=== PATIENT | male | born 1980 | race Two or more races ===

== ENCOUNTER 2018-11-06 10:46 | Emergency (ER) | payer SELFPAY ==
[~2018-11-06] VITALS: Ht 177.8 cm; Wt 86.2 kg
[2018-11-06 11:00] VITALS: BP 114/72
--- NOTE | 2018-11-06 11:00 | NUR ---
ED Nurse Note: Pt BIBA from street due to overdose with unknown substances. Pt is alert and awake but refused to verbalize anything being asked and kept asking for sandwich. pt was explained that food and drink will be provided after lab workds done but refusing IV insertion and blood drawn and providng urine. pt got violent verbally and physically when nursing staff tried to convince him. pt was able to verbalize his name only and fell back to sleep right away. skin very dry and dishevelled. pt calmed down with verbal commands but still refusing any care. nurse was able to obtain VS except temperture due to biting temperture pole and refusing rectal temp. pt refused to verbalize the substances he took.
--- NOTE | 2018-11-06 11:10 | NUR ---
ED Nurse Note: MD made aware of pt's refusing all the cares. waiting for the further order.
--- NOTE | 2018-11-06 11:40 | NUR ---
ED Nurse Note: was reminded that pt is refusing all the cares. wants to find out pt's family number and call but pt refused to provide any numbers and pt is aao x1 only. will wait for further order. Addendum: 11/07/18 at 0736 by [email or web address] ED Nurse Note: was reminded that pt is refusing all the cares. wants to find out pt's family number and call but pt refused to provide any numbers. will wait for further order.
--- NOTE | 2018-11-06 11:45 | NUR ---
ED Nurse Note: pt removed all the cables for monitor and refusing to be reattached. pt tried to walk out and was redirected back to bed. made aware.
--- NOTE | 2018-11-06 12:00 | NUR ---
patient is awake alert oriented doesnot want to behere . states he is not suicidal or homocidal we are trying to do thigs againist his wishes . patient states he wants to leave dont want to give any information
--- NOTE | 2018-11-06 12:03 | NUR ---
ED Nurse Note: MD spoke to pt and verbally ordered ok for pt to eat and drink. sandwich and orange juice were provided. pt still refusing to provide family numbers.
--- NOTE | 2018-11-06 12:10 | NUR ---
ED Nurse Note: pt refused to be attached to the monitor. VS is not being able to be assessed at this moment. pt finished sandwich and orange juice. Addendum: 11/07/18 at 0737 by [email or web address] ED Nurse Note: pt aao x 4 and refused to be attached to the monitor. VS is not being able to be assessed at this moment. pt finished sandwich and orange juice.
--- NOTE | 2018-11-06 12:23 | NUR ---
ED Nurse Note: Jono rose. made aware. Addendum: 11/06/18 at 1226 by [email or web address] ED Nurse Note: Jono rose. made aware. VS was not able to be obtained.
--- NOTE | 2018-11-06 14:44 | Emergency Room Report ---
History of Present Illness General Chief Complaint: Overdose Source: Patient, EMS Present Illness HPI Patient presents by paramedics for reports of altered mental status possible drug overdose Upon arrival the patient initially was sluggish to respond However throughout his stay he became more oriented Denies any homicidal or suicidal thoughts Denies any chest pain or shortness of breath denies any abdominal pain Patient reports that he has used drugs in the past however was not able to provide specific names Patient reports that he was hungry otherwise denies any abdominal pain Denies any focal weakness Allergies: Coded Allergies: No Known Allergies (Unverified , 11/06/18) Patient History Past Medical History: see triage record Pertinent Family History: none Reviewed Nursing Documentation: PMH: Agreed; PSxH: Agreed Nursing Documentation-PMH Past Medical History: No Stated History Review of Systems All Other Systems: negative except mentioned in HPI Physical Exam Vital Signs Date Time Temp Pulse Resp B/P (MAP) Pulse Ox O2 Delivery O2 Flow Rate FiO2 11/06/18 10:34 98.2 120 18 109/65 99 Room Air 11/06/18 11:00 96 Sp02 EP Interpretation: reviewed, normal General Appearance: no apparent distress Head: normocephalic, atraumatic Eyes: bilateral eye PERRL, bilateral eye EOMI ENT: hearing grossly normal, normal pharynx, TMs + canals normal, uvula midline Neck: full range of motion, supple, no meningismus, no bony tend Respiratory: lungs clear, normal breath sounds, no rhonchi, no respiratory distress, no retraction, no accessory muscle use Cardiovascular #1: normal peripheral pulses, regular rate, rhythm, no edema, no gallop, no JVD, no murmur Gastrointestinal: normal bowel sounds, non tender, soft, no mass, no organomegaly, non-distended, no guarding, no hernia, no pulsatile mass, no rebound Genitourinary: no CVA tenderness Musculoskeletal: normal inspection Neurologic: oriented x3 - Initially patient was somewhat sluggish to respond however, throughout his stay has become awake alert GCS 15, reports that he had no intentions of any suicide has no other intentions of hurting himself or others, responsive, scrum product owner III-XII nml as tested, motor strength/tone normal, sensory intact Psychiatric: mood/affect normal Skin: normal color, no rash, warm/dry, palpation normal Lymphatic: normal inspection, no adenopathy Medical Decision Making Diagnostic Impression: Primary Impression: Drug overdose ER Course 15 minutes after arrival the patient is awake alert GCS 15 he is refusing any intervention Patient refuses contact any family members, refuses any further care On repeat evaluation patient has eloped from the emergency room Last Vital Signs Date Time Temp Pulse Resp B/P (MAP) Pulse Ox O2 Delivery O2 Flow Rate FiO2 11/06/18 11:00 63 16 Room Air 96 11/06/18 11:00 114/72 96 11/06/18 10:34 98.2 Status: improved Disposition: ELOPED Condition: Unknown Referrals: NOT CHOSEN IPA/,REFERRING (PCP) Jerman Summers DO Nov 06, 2018 14:44
== END 2018-11-06 12:20 | disposition left against medical advice (07) ==
LOC: EDBD 10:46 → EDAGE 10:46 → EMR 11:45
DX: T65.91XA Toxic effect of unspecified substance, accidental (unintentional), initial encounter (principal); R41.82 Altered mental status, unspecified; Y92.9 Unspecified place or not applicable; Z53.21 Procedure and treatment not carried out due to patient leaving prior to being seen by health care provider
CPT/HCPCS: 99283